=== PATIENT | male | born 1955 | race Two or more races ===

== ENCOUNTER → 2021-02-26 | Outpatient (CLI) | payer OTHER ==
[~2021-02-26] MED LIST: OMNIPAQUE 350 MG/ML, 150 ML BOTTLE ONE
[2021-02-26 08:06] LABS: CREATININE 0.85 mg/dL (0.7-1.3)
== END | disposition home or self-care (01) ==
LOC: RAD 07:13
PROVIDERS: ATTEND Family Medicine
DX: N40.0 Benign prostatic hyperplasia without lower urinary tract symptoms (principal); N30.01 Acute cystitis with hematuria
CPT/HCPCS: 36415; 74178; 82565; Q9967